=== PATIENT | female | born 1955 | race Caucasian/White ===

== ENCOUNTER 2018-04-08 18:29 | Emergency (ER) | payer OTHER ==
[~2018-04-08] VITALS: Ht 162.6 cm; Wt 86.4 kg
[2018-04-08] MEDS ORDERED: LISI-660 PO (18:48)
[2018-04-08] MEDS ORDERED: SIMV-259 PO (18:50)
[2018-04-08] MEDS ORDERED: ATEN25TA PO (18:50)
[2018-04-08] MEDS ORDERED: SERT50TA12 PO (18:50)
[2018-04-08] MEDS ORDERED: ESOM20CA31 PO (18:50)
[2018-04-08] MEDS ORDERED: TRAM50TA4 PO (18:50)
[2018-04-08] MEDS ORDERED: SULFAMETHOX/TRIMETH DS 800-160 MG/TABLET PO ONE (20:00)
[2018-04-08] MEDS ORDERED: CEPHALEXIN MONOHYDRATE 500 MG CAPSULE PO ONE (20:00)
[2018-04-08] MEDS ORDERED: ACETAMINOPHEN 500 MG TABLET PO ONE (20:00)
[2018-04-08 20:19] VITALS: BP 143/96
== END 2018-04-08 20:50 | disposition home or self-care (01) ==
LOC: EMS 18:30
DX: L03.316 Cellulitis of umbilicus (principal); F32.9 Major depressive disorder, single episode, unspecified; E78.00 Pure hypercholesterolemia, unspecified; I10 Essential (primary) hypertension; Z90.49 Acquired absence of other specified parts of digestive tract; Z79.891 Long term (current) use of opiate analgesic; Z79.899 Other long term (current) drug therapy; Z88.1 Allergy status to other antibiotic agents; Z91.040 Latex allergy status

== ENCOUNTER 2018-04-12 16:45 | Emergency (ER) | payer OTHER ==
[~2018-04-12] VITALS: Ht 162.6 cm; Wt 90.9 kg
[~2018-04-12 16:45] MED LIST: ATEN25TA PO; ESOM20CA31 PO; LISI-660 PO; SERT50TA12 PO; SIMV-259 PO; TRAM50TA4 PO
[2018-04-12] MEDS ORDERED: IBUPROFEN 800 MG TABLET PO ONE (17:45)
[2018-04-12] MEDS ORDERED: POVIDONE-IODINE 10% 15 ML SOLUTION UD TP ONE (17:45)
[2018-04-12] MEDS ORDERED: BACITRACIN 0.9 GM PACKET OINTMENT TP ONE (17:45)
[2018-04-12 18:51] VITALS: BP 110/69
== END 2018-04-12 18:54 | disposition home or self-care (01) ==
LOC: EMS 16:46
DX: L03.316 Cellulitis of umbilicus (principal); F32.9 Major depressive disorder, single episode, unspecified; E78.00 Pure hypercholesterolemia, unspecified; I10 Essential (primary) hypertension; Z88.1 Allergy status to other antibiotic agents; Z91.040 Latex allergy status